=== PATIENT | female | born 1995 | race Two or more races ===

== ENCOUNTER 2024-05-13 21:12 | Emergency (ER) | payer MEDICAID, SELFPAY ==
[2024-05-13 21:13] VITALS: BMI 34.7
[2024-05-13 21:48] VITALS: BP 136/89; PULSE 127; RESP 22; TEMP 38.6; O2SAT 99
[2024-05-13 22:02] VITALS: PULSE 119; RESP 18
[2024-05-13 22:08] VITALS: TEMP 38.6
[2024-05-13] MEDS: ACETAMINOPHEN 500 MG TABLET 1000 MG PO (22:08)
[2024-05-13] MEDS: NAPROXEN 250 MG TABLET 500 MG PO (22:08)
[2024-05-13 23:57] VITALS: BP 110/74; PULSE 107; RESP 18; TEMP 36.8; O2SAT 96
--- NOTE | 2024-05-13 23:58 | PD.EDURI ---
Upper Respiratory Inf. RME/HPI General Chief Complaint: Flu Like Symptoms Stated Complaint: FEVER, FLU LIKE SYMPTOMS Time Seen by Provider: 05/13/24 22:03 Arrival date/time: 05/13/24 21:12 29F with history of HTN presents to ED with 2 days of cough, body aches and fevers/chills. Limitations: no limitations Related Data Home Medications ?Medication ?Instructions ?Recorded ?Confirmed ibuprofen 600 mg tablet 600 mg PO Q8H PRN Pain 07/19/21 07/19/21 penicillin V potassium 500 mg 500 mg PO QID 07/19/21 07/19/21 tablet Previous Rx's ?Medication ?Instructions ?Recorded ibuprofen 800 mg tablet 800 mg PO TID PRN pain #30 tabs 04/06/22 Allergies Allergy/AdvReac Type Severity Reaction Status Date / Time No Known Allergies Allergy Verified 05/13/24 21:15 Review of Systems Review of Systems Systems Reviewed: All systems reviewed, normal except as documented Constitutional Constitutional: Reports system reviewed and no additional complaints, except as documented, Reports as per HPI, Reports body ache(s), Reports chills, Reports fever(s) and Denies headache(s) ENT Ears, Nose, Mouth, and Throat: Denies disequilibrium and Denies headache(s) Cardiovascular Cardiovascular: Reports system reviewed and no additional complaints, except as documented, Denies chest pain and Denies dyspnea Respiratory Respiratory: Reports system reviewed and no additional complaints, except as documented, Reports as per HPI, Reports cough and Denies dyspnea Gastrointestinal Gastrointestinal: Reports system reviewed and no additional complaints, except as documented, Denies abdominal pain, Denies nausea and Denies vomiting Neurologic Neurologic: Reports system reviewed and no additional complaints, except as documented, Denies confusion, Denies disequilibrium and Denies headache(s) Psychiatric Psychiatric: Denies confusion Past Medical History Past Medical History NEUROLOGIC: Negative Neurological Disorders CARDIAC: Positive Hypertension; Negative Cardiac Disorders or Congestive Heart Failure RESPIRATORY: Negative Chronic Obstructive Pulmonary Disease (COPD) or Asthma (COVID +) GASTROINTESTINAL: Negative Gastrointestinal Disorders, Hepatitis or Colorectal Cancer GENITOURINARY: Negative Genitourinary Disorders, Renal Disease or Prostate Cancer REPRODUCTIVE: Positive Previous Pregnancies; Negative Breast Cancer, Endometriosis, Pelvic Inflammatory Disease, Testicular Cancer or Uterine Prolapse MUSCULOSKELETAL: Negative Musculoskeletal Disorders, Bone Cancer or Carpal Tunnel Syndrome ENT: Negative Cataracts ENDOCRINE: Negative Endocrine Disorders, Diabetes Mellitus Type 1 or Diabetes Mellitus Type 2 HEMATOLOGIC: Positive Blood Disorders and Anemia; Negative Sickle Cell Disease OTHER HISTORY: Positive Hospitalization ([facility], SX ON LEG); Negative Autoimmune Disease, Down Syndrome, Developmental Delay, Shingles, Falls, Blood Transfusions, Blood Transfusion Reaction, Anesthesia Reactions, Organ Transplant, Chemotherapy, Radiation Therapy, Hyperbaric Therapy, MRSA, VRSA, Vancomycin-Resistant Enterococci, Human Immunodeficiency Virus (HIV), Chicken Pox, Measles, Mumps, Rubella ([place] Measles), Pertussis, Clostridium Difficile, Cancer, Breast Cancer, Cervical Cancer, Colorectal Cancer, Lung Cancer, Ovarian Cancer, Prostate Cancer or Testicular Cancer Family History FAMILY HISTORY: Negative Family Psychiatric Problems, Family Respiratory Disorders, Family Cardiac Disorders, Family Gastrointestinal Problems, Family Cancer, Family Surgery or Family Anesthesia Reaction Surgical History SURGICAL: Negative Cardiac Surgery, Open Heart Surgery, Coronary Artery Bypass Graft, Valve Replacement, Vascular Surgery, Coronary Stent, Cardiac Catheterization, Pacemaker, Angiogram, Auto Implanted Cardiovert Defib, Carotid Endarterectomy, Endocrine Surgery, Thyroidectomy, Ear Surgery, Tympanostomy Tube, Eye Surgery, Nose Surgery, Oral Surgery, Tonsillectomy, Adenoidectomy, Cochlear Implant, Corneal Transplant, Throat Surgery, Abdominal Surgery, Tracheostomy, Gastric Bypass Surgery, Gastrostomy, Bowel Surgery, Nephrectomy, Transurethral Resection, Joint Replacement, Amputation, Open Reduction Internal Fixation, Arthroscopy, Neurologic Surgery, Brain Shunt, Mastectomy, Lumpectomy, Hysterectomy, Tubal Ligation, Section or Organ Transplant Social History SMOKING STATUS: Never smoker SUBSTANCE USE: does not use ED Exam General Limitations: Present no limitations General appearance: Present alert and in no apparent distress Head Head exam: Present atraumatic Eye Eye exam: Present normal appearance, PERRL and EOMI ENT ENT exam: Present normal exam, normal oropharynx and mucous membranes moist Neck Neck exam: Present normal inspection, full ROM and trachea midline Chest Chest inspection: Present normal inspection and symmetric chest wall rise Respiratory Respiratory exam: Present normal lung sounds bilaterally Cardiovascular Cardiovascular exam: Present regular rate, normal rhythm and normal heart sounds Abdominal Exam Abdominal exam: Present soft and normal bowel sounds Extremities Exam Extremities exam: Present normal inspection and full ROM Back Exam Back exam: Present normal inspection and full ROM Neurological Exam Neurological exam: Present alert, oriented X3 and CN II-XII intact Psychiatric Psychiatric exam: Present normal affect and normal mood Skin Skin exam: Present warm, dry, intact and normal color Course Quality Measures none Orders Category Date Time Status Bedside Influenza A&B Antigen Test NOW Care 05/13/24 21:54 Completed Acetaminophen Tab [Tylenol ES Tab] Med 05/13/24 22:03 Discontinued 1,000 mg PO X1 ONE Naproxen [Naprosyn] Med 05/13/24 22:03 Discontinued 500 mg PO X1 ONE Vital Signs Vital signs: Vital Signs Temperature 101.4 F H 05/13/24 21:48 Pulse Rate 127 H 05/13/24 21:48 Respiratory Rate 22 H 05/13/24 21:48 Blood Pressure 136/89 H 05/13/24 21:48 Pulse Oximetry (%) 99 05/13/24 21:48 Oxygen Delivery Method Room Air 05/13/24 21:48 O2 at 99% on RA and WNLs Upper Respiratory Infection MDM Narrative MDM Narrative:: 29F with history of HTN presents to ED with 2 days of cough, body aches and fevers/chills. Physical exam reveals clear ENT and lungs. Patient is febrile, but does not appear toxic. Flu B+. Patient data External records reviewed:: [facility] previous records Clinical information provided by:: patient Social determinants that could affect healthcare access:: none Patient has the following chronic illnesses:: HTN How is presenting disease/condition affected by chronic disease/condition?: uneffected by Evaluation data The following diagnostics were reviewed and interpreted by me:: lab results Lab and/or radiology exams considered but not ordered:: ordered Interpretation Summary: above Medications / Prescriptions Medications or Prescriptions considered but not ordered:: ordered Medication administrations:: Medication Administration History Discontinued Medications Acetaminophen (Acetaminophen 500 Mg Tablet) 1,000 mg PO X1 ONE Stop: 05/13/24 22:04 Last Admin: 05/13/24 22:08 Dose: 1,000 mg Documented By: OA Naproxen (Naproxen 250 Mg Tablet) 500 mg PO X1 ONE Stop: 05/13/24 22:04 Last Admin: 05/13/24 22:08 Dose: 500 mg Documented By: OA above Consultations Consultation(s) initiated? (list below): No Diagnosis Upper Respiratory Differential Diagnosis: upper respiratory infection, croup, otitis media, sinusitis, viral infection, bronchitis, influenza and pharyngitis Most likely diagnosis given after review of the tests above:: flu B Admission Indicated Admission indicated?: not indicated Admission Request Was there a request for admission?: No Disposition Plan Disposition Plan: Discharge Discharge Attestation Discharge Attestation: The patient and all family members were given an opportunity to ask questions and understood the discharge instructions. Discharge instructions specifically effects, indications for sooner follow up or return to the emergency department, and the expected course of current diagnosis. Patient condition: Stable Discharge Plan Plan Patient Disposition: HOME (Self Care) Disposition Comment: Stable Prescriptions/Referrals Prescriptions/Med Rec: No Action penicillin V potassium 500 mg Tablet 500 mg PO QID ibuprofen 600 mg Tablet 600 mg PO Q8H PRN (Reason: Pain) ibuprofen 800 mg tablet 800 mg PO TID PRN (Reason: pain) Qty: 30 0RF Problem List Clinical Impression: Influenza B Patient/Caregiver Discharge Instructions Education Materials: ED Influenza (Adult) Additional Instructions: Please follow-up with PCP within 24-48 hours and return immediately if symptoms worsen. Ibuprofen/Tylenol can be used simultaneously for greater fever/pain control. Benadryl is good for cough, congestion, and sleep. Print Language: Mongolian Stand Alone Forms: Patient Portal Info Letter CARLA/MORALES Supervising Physician CARLA/MORALES Supervising Physician: Dr. Serrano
[2024-05-14 00:04] VITALS: PULSE 89; RESP 16; TEMP 36.8; O2SAT 99
== END 2024-05-14 00:04 | disposition home or self-care (01) ==
LOC: SERX 05-14 02:31
PROVIDERS: Emergency Provider Emergency Medicine
DX: J10.1 Influenza due to other identified influenza virus with other respiratory manifestations (principal)
CPT/HCPCS: 87400; 99283; A9270

== ENCOUNTER 2025-05-18 00:03 | Emergency (ER) | payer MEDICAID, SELFPAY ==
[2025-05-18 00:05] VITALS: BMI 39.3
--- NOTE | 2025-05-18 00:16 | PD.EDWOUND ---
ED Wound/Laceration-RME/HPI General Chief Complaint: Hand/Wrist Problems Stated Complaint: AMPUTATED LEFT FINGER Time Seen by Provider: 05/18/25 00:16 Arrival date/time: 05/18/25 00:03 RME / HPI RME / HPI narrative: See [facility] for Dr. Gómez's HPI Documentation. Related Data Home Medications ?Medication ?Instructions ?Recorded ?Confirmed ibuprofen 600 mg tablet 600 mg PO Q8H PRN Pain 07/19/21 07/19/21 penicillin V potassium 500 mg 500 mg PO QID 07/19/21 07/19/21 tablet Previous Rx's ?Medication ?Instructions ?Recorded ibuprofen 800 mg tablet 800 mg PO TID PRN pain #30 tabs 04/06/22 acetaminophen 300 mg-codeine 30 mg 2 tab PO Q8H PRN pain #20 tabs 05/18/25 tablet ibuprofen 800 mg tablet 800 mg PO Q8H PRN pain #30 tabs 05/18/25 Allergies Allergy/AdvReac Type Severity Reaction Status Date / Time No Known Allergies Allergy Verified 05/18/25 00:04 Review of Systems Review of Systems Systems Reviewed: All systems reviewed, normal except as documented Past Medical History Past Medical History CARDIAC: Positive Hypertension REPRODUCTIVE: Positive Previous Pregnancies HEMATOLOGIC: Positive Blood Disorders and Anemia OTHER HISTORY: Positive Hospitalization ([facility], SX ON LEG) ED Exam Narrative Physical exam: See [facility] for Dr. Gómez's Physical Exam Documentation. Course Quality Measures none Orders Category Date Time Status Wound Care [Wound Care] NOW Care 05/18/25 00:17 Completed XR finger LT min 2V Stat Exams 05/18/25 00:18 Completed Amoxicillin/Pot Clav 875 [Augmentin 875] Med 05/18/25 00:18 Discontinued 1 tab PO X1 ONE Ibuprofen Tab [Motrin Tab] Med 05/18/25 00:18 Discontinued 800 mg PO X1 ONE Lidocaine 1% Vial 20 ml [Xylocaine 1% 20 ML] Med 05/18/25 00:18 Discontinued 20 ml INFL X1 ONE TET,DIP/PERT AC (Adult)-Tdap [Boostrix Adult (Tdap) Med 05/18/25 00:18 Discontinued Vacc] 0.5 ml IMI .ONCE ONE Vital Signs Vital signs: Vital Signs Temperature 98.1 F 05/18/25 00:18 Pulse Rate 89 05/18/25 00:18 Respiratory Rate 18 05/18/25 00:18 Blood Pressure 161/99 H 05/18/25 00:18 Pulse Oximetry (%) 100 05/18/25 00:18 Oxygen Delivery Method Room Air 05/18/25 00:18 PROCEDURES: Nerve Block Nerve Block 1: Time out performed: Yes Local Anesthetic: lidocaine 1% Amount of anesthesia used (mL): 20 Side: left Nerve Blocks: digital (index finger ) Procedure Successful: Yes Patient Tolerated Procedure: well and no complications Complications: none Wound / Laceration MDM Narrative MDM Narrative:: This section includes all my notes and documentations, including HPI, PE, and ED course. 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 Reports active bleeding. No other injury. No other complaints. 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 No other complaints. ROS: All negative except as documented in HPI. Physical Exam: General: Alert and oriented. Eyes: Conjunctivae and lids clear. ENT: No nasal congestion. Neck: Supple. Lungs: No respiratory distress. Skin: Warm and dry. Neuro: Alert and oriented X 3. Left 2nd Finger: Amputation of the tip of the distal phalanx. I reviewed all diagnostic test results: My review of the finger x-rays is: Traumatic amputation of the distal end of the index finger, this includes the soft tissues, and there is exceedingly minimal but definite amputation of the tip of the distal tuft of the distal phalanx. At this point, diagnoses include: Traumatic amputation of tip of left index finger Treatment here included: Digital block Wound care with pressure dressing Augmentin 875 mg PO Tdap Motrin 800 mg Significant improvement noted. Recommended outpatient followup. Based on my best medical judgment, made decision no further evaluation or treatment indicated at this time. Patient understands and agrees to the discharge instructions customized and printed, see below. Discharge instructions from Dr. Gómez:? -- Keep the current dressing clean and dry intact for 48 hours. -- Elevate above the heart level today and tomorrow as much as possible.? Placing the hand on the head is a good method. -- After 48 hours, change the dressing once daily. -- First remove the dressing gently.? If it does not come off easily, run water through it until it comes off easily. -- Then gently wash with soap and water. -- After completely drying, apply antibiotic ointment and new dressing. -- Take Augmentin to help prevent serious infection. -- Ibuprofen 800 mg every 6-8 hours today and tomorrow to decrease inflammation then as needed. -- Tylenol with codeine for severe pain. -- See a private doctor on 05/20/2025 for recheck. Ask for help until you are completely better. Ask for referral to see specialist if needed. -- Seek immediate medical care with fever, spreading redness from the wound, or with any concerns. Charli Gómez MD Patient data External records reviewed:: [facility] previous records (Reviewed prior ED records from 05/13/24. Patient was seen for Influenza B.) Clinical information provided by:: patient Social determinants that could affect healthcare access:: none Patient has the following chronic illnesses:: Anemia, HTN How is presenting disease/condition affected by chronic disease/condition?: uneffected by Evaluation data The following diagnostics were reviewed and interpreted by me:: radiology exam(s) Lab and/or radiology exams considered but not ordered:: None Interpretation Summary: I reviewed all diagnostic test results: My review of the finger x-rays is: Traumatic amputation of the distal end of the index finger, this includes the soft tissues, and there is exceedingly minimal but definite amputation of the tip of the distal tuft of the distal phalanx. Medications / Prescriptions Medications or Prescriptions considered but not ordered:: None Medication administrations:: Medication Administration History Discontinued Medications Amoxicillin/Clavulanate Potassium (Amoxicillin/Pot Clav 875 Tablet) 1 tab PO X1 ONE Stop: 05/18/25 00:19 Last Admin: 05/18/25 00:42 Dose: 1 tab Documented By: RIMA Diphtheria/Tetanus/Acell Pertussis (Diphth,Pertuss(Acell),Tet Vac 0.5 Ml Syr- Adult) 0.5 ml IMi .ONCE ONE Stop: 05/18/25 00:19 Last Admin: 05/18/25 00:43 Dose: 0.5 ml Documented By: RIMA Ibuprofen (Ibuprofen Tab 400 Mg Tablet) 800 mg PO X1 ONE Stop: 05/18/25 00:19 Last Admin: 05/18/25 00:42 Dose: 800 mg Documented By: RIMA Lidocaine HCl (Lidocaine Hcl 1% 20 Ml Vial) 20 ml INFL X1 ONE Stop: 05/18/25 00:19 Last Admin: 05/18/25 00:43 Dose: 20 ml Documented By: RIMA Treatment here included: Digital block Wound care with pressure dressing Augmentin 875 mg PO Tdap Motrin 800 mg Consultations Consultation(s) initiated? (list below): No Diagnosis Wound Differential Diagnosis: laceration, abrasion, avulsion of skin and other (Fracture, Finger ampuation) Most likely diagnosis given after review of the tests above:: Traumatic amputation of tip of left index finger Admission Indicated Admission indicated?: not indicated Explain why admission is indicated or not indicated:: With significant improvement and no condition needing emergent intervention, there was no indication for admission. Admission Request Was there a request for admission?: No Disposition Plan Disposition Plan: Discharge Discharge Attestation Discharge Attestation: The patient and all family members were given an opportunity to ask questions and understood the discharge instructions. Discharge instructions specifically effects, indications for sooner follow up or return to the emergency department, and the expected course of current diagnosis. Patient condition: Stable Discharge Plan Plan Patient Disposition: HOME (Self Care) Prescriptions/Referrals Prescriptions/Med Rec: New ibuprofen 800 mg tablet 800 mg PO Q8H PRN (Reason: pain) Qty: 30 0RF acetaminophen-codeine 300-30 mg tablet 2 tab PO Q8H MDD 6 PRN (Reason: pain) Qty: 20 0RF No Action penicillin V potassium 500 mg Tablet 500 mg PO QID ibuprofen 600 mg Tablet 600 mg PO Q8H PRN (Reason: Pain) ibuprofen 800 mg tablet 800 mg PO TID PRN (Reason: pain) Qty: 30 0RF Problem List Clinical Impression: Traumatic amputation of tip of left index finger Patient/Caregiver Discharge Instructions Discharge Activity: activity as tolerated Education Materials: ED Finger Tip Amputation Open ... Additional Instructions: Discharge instructions from Dr. Gómez:? -- Keep the current dressing clean and dry intact for 48 hours. -- Elevate above the heart level today and tomorrow as much as possible.? Placing the hand on the head is a good method. -- After 48 hours, change the dressing once daily. -- First remove the dressing gently.? If it does not come off easily, run water through it until it comes off easily. -- Then gently wash with soap and water. -- After completely drying, apply antibiotic ointment and new dressing. -- Take Augmentin to help prevent serious infection. -- Ibuprofen 800 mg every 6-8 hours today and tomorrow to decrease inflammation then as needed. -- Tylenol with codeine for severe pain. -- See a private doctor on 05/20/2025 for recheck. Ask for help until you are completely better. Ask for referral to see specialist if needed. -- Seek immediate medical care with fever, spreading redness from the wound, or with any concerns. Print Language: Swedish Stand Alone Forms: [employer] Award Info., Patient Portal Info Letter
[2025-05-18 00:18] VITALS: BP 161/99; PULSE 89; RESP 18; TEMP 36.7; O2SAT 100
--- NOTE | 2025-05-18 00:18 | XR_ITS ---
Examination: Fingers, 3 views Technique: AP, oblique, lateral views of left hand and wrist. Exam date and time: 05/18/2025 12:42 a.m. CLINICAL HISTORY: Patient caught index finger and a food terrazzo grinder today FINDINGS: There has been amputation of the soft tissues at the very distal end of the index finger. There has also been amputation of the very distal tip, of the distal tuft of the second distal phalanx. No other abnormalities are seen anywhere IMPRESSION: 1. Traumatic amputation of the distal end of the index finger, this includes the soft tissues, and there is exceedingly minimal but definite amputation of the tip of the distal tuft of the distal phalanx
[2025-05-18 00:36] VITALS: BP 145/120; PULSE 91; RESP 22; O2SAT 100
[2025-05-18] MEDS: AMOXICILLIN/POT CLAV 875 TABLET 1 TAB PO (00:42)
[2025-05-18] MEDS: IBUPROFEN TAB 400 MG TABLET 800 MG PO (00:42)
[2025-05-18] MEDS: LIDOCAINE HCL 1% 20 ML VIAL INFL (00:43)
[2025-05-18] MEDS: DIPHTH,PERTUSS(ACELL),TET VAC 0.5 ML SYR- ADULT IMi (00:43)
[2025-05-18 02:19] VITALS: BP 142/87; PULSE 89; RESP 18; TEMP 36.7; O2SAT 99
== END 2025-05-18 02:21 | disposition home or self-care (01) ==
LOC: SERX 02:16
PROVIDERS: Emergency Provider Emergency Medicine; PCP Physician Assistant
DX: S68.121A Partial traumatic metacarpophalangeal amputation of left index finger, initial encounter (principal); W31.89XA Contact with other specified machinery, initial encounter; Z23 Encounter for immunization
CPT/HCPCS: 64450; 73140; 90471; 90715; 99283; J3490; A9270